=== PATIENT | male | born 1940 | race Caucasian/White ===

== ENCOUNTER 2019-11-10 11:05 | Inpatient (IN) | payer MEDICARE, SELFPAY ==
[2019-11-10] VITALS (14 sets, daily range): BP systolic 136–151; BP diastolic 66–81; PULSE 75–82; RESP 16–26; TEMP 36.2–36.8; O2SAT 92–98; BMI 28.3
--- NOTE | ~2019-11-10 | CT_ITS ---
EXAMINATION:CT chest w con DATE: 11/14/2019 10:39 INDICATION: Abnormal chest radiograph. Hemoptysis. TECHNIQUE: Computed tomography (CT) of the chest was performed with 75 mL Omnipaque 350 intravenous c ontrast. Automated exposure control and iterative reconstruction technique were employed. The dose-le ngth product (DLP) was 312.04 mGy-cm. COMPARISON: Chest CT 09/13/2007, chest single view 11/13/2019 FINDINGS: There is severe emphysema. There is bronchiectasis in the inferior lungs. There are mild gr oundglass and airspace opacities in left lower lobe with volume loss, likely atelectasis and chronic lung disease. There are peripheral airspace opacities in left upper lobe with volume loss, likely ate lectasis and chronic lung disease. Calcified left lung nodules and calcified left hilar and mediastin al lymph nodes are consistent with old granulomatous disease. There is a 5 mm nodule in right middle lobe, new from 09/13/2007. No pleural effusion. Cardiomegaly is noted. There are coronary artery calc ifications. There is no pulmonary embolus. There is mild thoracic spondylosis. IMPRESSION: 1. Peripheral airspace and groundglass opacities in left lung with volume loss, likely a combination of atelectasis and chronic lung disease. These findings correlate with the chest radiograph abnormali ty. 2. Severe emphysema. Bronchiectasis in the inferior lungs. 3. 5 mm pulmonary nodule, new from 09/13/2007, probably benign. Noncontrast chest CT is recommended i n 6 months. 4. Cardiomegaly. Reviewed, dictated and finalized at location A. UCT COORDINATOR IMPRESSION: 1. Peripheral airspace and groundglass opacities in left lung with volume loss, likely a combination of atelectasis and chronic lung disease. These findings c orrelate with the chest radiograph abnormality. 2. Severe emphysema. Bronchiectasis in the inferior lungs. 3. 5 mm pulmonary nodule, new from 09/13/2007, probably benign. Noncontrast beba st CT is recommended in 6 months. 4. Cardiomegaly.
--- NOTE | ~2019-11-10 | XR_ITS ---
EXAMINATION: XR chest 1V portable DATE: 11/13/2019 10:57 INDICATION: Congestive heart failure. Chronic obstructive pulmonary disease. TECHNIQUE: A single frontal view of the chest was obtained. COMPARISON: Chest 2 views 11/10/2019, 08/12/2007, chest CT 09/13/2007 FINDINGS: There are lucencies in the lungs, consistent with emphysema. There is a 6 cm mass in left m idlung zone. There is a small left pleural effusion. There are airspace opacities at left lung base. No pneumothorax. The heart size is normal. There are prominent paracardial fat pads. There is a left chest wall pacer with leads in the right atrium and right ventricle. IMPRESSION: 1. Mass in left midlung zone suspicious for primary bronchogenic carcinoma. Chest CT is recommended. I called this result to Dr. Dwyer on 11/13/19 at 11:15 AM. 2. Airspace opacities at left lung base, consistent with atelectasis versus pneumonia. 3. Small left pleural effusion. 4. Severe emphysema. Reviewed, dictated and finalized at location A. RLOCKER IMPRESSION: 1. Mass in left midlung zone suspicious for primary bronchogenic carcinoma. [place] st CT is recommended. I called this result to Dr. Dwyer on 11/13/19 at 11:15 AM. 2. Airspace opacities at left lung base, consistent with atelectasis versus pne umonia. 3. Small left pleural effusion. 4. Severe emphysema.
--- NOTE | ~2019-11-10 | XR_ITS ---
EXAMINATION: XR chest 2V EXAM DATE: 11/10/2019 12:57 INDICATION: Shortness of breath on exertion, symptoms for months. COPD. TECHNIQUE: Frontal and lateral projections of the chest obtained and reviewed. Comparison is made to prior examination from 08/12/2007. FINDINGS: There is increased bilateral reticulation, multifocal bilateral airspace disease with more confluent opacity in the left upper lobe. Could be edema and/or pneumonia assuming this is acute. Un derlying chronic interstitial lung disease also possible. Left upper lobe malignancy not excludable, and follow-up chest x-ray should be obtained in 2-4 weeks as indicated clinically. There is cardiomegaly and pulmonary vascular congestion. Mild hyperinflation. There is a dual lead pa cemaker/AICD seen with leads projecting over the expected locations of the right atrial appendage and right ventricle. There is aortic arterial sclerosis. There are mild bony degenerative changes. There is no pneumothorax suspected. The airspace disease described is new compared to 2006. IMPRESSION: Abnormal reticulation and airspace disease more confluent in left upper lobe; clinical co rrelation for edema versus pneumonia. Follow-up chest x-ray indicated to exclude any underlying cance r or underlying pulmonary fibrosis. Reviewed, dictated and finalized at location B. DREN'S BOOK AUTHOR IMPRESSION: Abnormal reticulation and airspace disease more confluent in left u pper lobe; clinical correlation for edema versus pneumonia. Follow-up chest x-r ay indicated to exclude any underlying cancer or underlying pulmonary fibrosis.
--- NOTE | 2019-11-10 11:23 | PC.NURSE ---
PT TAKEN TO ROOM 5, ROB SIERRA INFORMED OF PT STATUS, RA SATURATION AT TIME OF ROOMING 72%, PT PLACED ON 2L NC. ROB SIERRA AT BEDSIDE.
--- NOTE | 2019-11-10 12:05 | ED.SOB ---
HPI - SOB/Dyspnea General Chief Complaint: Shortness of Breath/Dyspnea Stated Complaint: SpO2 74% Time Seen by Provider: 11/10/19 11:55 Source: patient, family () and RN notes reviewed Mode of arrival: ambulatory Limitations: no limitations History of Present Illness HPI Narrative: A 79 y/o male, with a hx of COPD, presents to the ED from Dr. Magana's office with worsening exertional SOB for the past 2 months. He states that while he was at Dr. Magana's office that his O2 sat was 74%, so they suggested he come here to be evaluated. He reports that after being placed on 4 L of O2 that he feels better. He also reports that resting alleviates his SOB and that exertion exacerbates his SOB. He denies any fevers, chills, sweats, CP, N/V/D, ABD pain, and any other medical complaints at this time. MD elicited complaint: shortness of breath Pertinent past history: COPD Onset (ago): month(s) (2) Context: occurred during exertion Timing: progressively worsening Exacerbating factors: exertion Relieving factors: oxygen and rest Known history of: COPD Associated symptoms: denies other symptoms Treatment prior to arrival: oxygen Related Data Home Medications Medication Instructions Recorded Confirmed albuterol sulfate 90 mcg/actuation 1 puff INHALATION Q4H PRN 11/07/19 aerosol inhaler apixaban 5 mg tablet 5 mg PO BID 11/07/19 budesonide-formoterol HFA 160 2 puff INHALATION Q12H 11/07/19 mcg-4.5 mcg/actuation aerosol inhaler bupropion HCl 150 mg tablet,12 hr 150 mg PO QAM 11/07/19 sustained-release celecoxib 200 mg capsule 200 mg PO DAILY 11/07/19 coenzyme Q10 200 mg capsule 200 mg PO DAILY 11/07/19 cyclobenzaprine 10 mg tablet 10 mg PO TID 11/07/19 esomeprazole magnesium 40 mg 40 mg PO DAILY 11/07/19 capsule,delayed release hydrochlorothiazide 12.5 mg tablet 12.5 mg PO DAILY 11/07/19 lisinopril 40 mg tablet 40 mg PO DAILY 11/07/19 metoprolol tartrate 50 mg tablet 50 mg PO BID tablet 11/07/19 pediatric multivitamin 1 tablet PO DAILY 11/07/19 tadalafil 5 mg tablet 5 mg PO DAILY 11/07/19 Allergies Allergy/AdvReac Type Severity Reaction Status Date / Time amiodarone Allergy Unknown Unknown Verified 11/10/19 11:32 cefuroxime Allergy Unknown Unknown Verified 11/10/19 11:32 fluticasone Allergy Unknown Blurry Verified 11/10/19 11:32 Vision rosuvastatin Allergy Unknown Muscle Pain Verified 11/10/19 11:32 salmeterol Allergy Unknown Unknown Verified 11/10/19 11:32 NA Allergy Unknown Uncoded 11/10/19 11:32 Review of Systems Review of Systems: All systems reviewed & are unremarkable except as noted in HPI and below Constitutional: Constitutional: Denies chills, Denies fatigue, Denies fever(s), Denies headache(s) and Denies night sweats Eyes: Eyes: Denies change in vision, Denies loss of vision and Denies other visual disturbances ENT: Denies headache(s), Denies hoarseness, Denies epistaxis, Denies nasal congestion and Denies sore throat Cardiovascular: Cardiovascular: Denies chest pain, Denies leg edema, Denies palpitations and Denies dyspnea Respiratory: Respiratory: Reports dyspnea (with exertion) Gastrointestinal: Gastrointestinal: Denies abdominal pain, Denies diarrhea, Denies nausea and Denies vomiting Genitourinary: Genitourinary: Denies hematuria, Denies dysuria and Denies urinary frequency Musculoskeletal: Musculoskeletal: Denies abnormal gait, Denies deformity, Denies joint swelling, Denies muscle weakness and Denies numbness Integumentary/Breasts: Skin/Breast: Denies rash, Denies unusual bruising and Denies wounds Neurologic: Denies abnormal gait, Denies headache(s), Denies focal weakness, Denies loss of vision and Denies numbness Psychiatric: Psychiatric: Reports no additional psychiatric complaints Endocrine: Endocrine: Denies fatigue and Denies palpitations Hematologic/Lymphatic: Hematologic/Lymphatic: Denies easy bleeding and Denies easy bruising Allergic/Immunologic: Allergic/Immun
--- NOTE | 2019-11-10 12:41 | ECG_ITS ---
Measurements Intervals [place] Rate: 75 P: NV: 0 QRS: 109 QRSD: 184 T: -44 QT: 453 QTc: 507 Interpretive Statements ELECTRONIC VENTRICULAR PACEMAKER BASELINE ARTIFACT- I, II, III, AVR, AVL, AVF, V1-V2 NO FURTHER INTERPRETATION IS POSSIBLE ATYPICAL ECG Electronically Signed On 11-10-2019 13:19:23 LOOP TACKER by Alexis Gutiérrez D.O.
[2019-11-10 12:52] LABS: Basophils Absolute Auto 0.1 K/mm3 (0.0-0.1); Basophils Percent Auto 0.6 % (0.2-1.2); Eosinophils Absolute Auto 0.5 K/mm3 (0-0.3); Eosinophils Percent Auto 4.6 % (0-4.4); Hemoglobin 16.3 g/dL (14.0-18.0); Immature Granulocyte Percent A 0.9 % (0-0.5); Lymphocytes Absolute Auto 0.89 K/mm3 (0.9-3.2); Lymphocytes Percent Auto 8.3 % (18.3-44.2); Mean Corpuscular HGB Conc 32.6 g/dl (32-36); Mean Corpuscular Hemoglobin 30.9 pg (26-34); Mean Corpuscular Volume 94.9 fl (80-100); Mean Platelet Volume 9.4 fl (7.4-10.4); Monocytes Absolute Auto 1.4 K/mm3 (0.1-0.6); Neutrophils Absolute Auto 7.8 K/mm3 (1.3-6.7); Neutrophils Percent Auto 72.6 % (45.5-73.1); Platelet Count Result 292 k/mm3 (150-375); Red Blood Count 5.27 M/mm3 (4.6-6.20); Red Cell Distribution Width 15.5 % (11.5-14.5); White Blood Count 10.8 K/mm3 (4.5-10.0)
[2019-11-10 13:03] LABS: Blood Urea Nitrogen 29 mg/dL (9-20); Calcium 9.2 mg/dL (8.4-10.2); Carbon Dioxide 32 mmol/L (22-30); Chloride 93 mmol/L (98-107); Estimated CRCL calculation 55 ml/min; Estimated Glomerular Filt Rate > 60; Glucose 111 mg/dL (75-110); Potassium 3.9 mmol/L (3.4-5.0); Sodium 137 mmol/L (137-145)
[2019-11-10] MEDS: FUROSEMIDE INJ 40 MG/4 ML VIAL IV PUSH ×2 (13:44→20:07)
[2019-11-10] MEDS: ALBUTEROL SULFATE NEB 2.5 MG/0.5 ML INH 5 MG INHALATION ×2 (13:59→20:57)
[2019-11-10] MEDS: IPRATROPIUM BR 0.02% INH SOLN 0.5 MG/2.5 ML VIAL INHALATION ×2 (13:59→20:57)
[2019-11-10 14:57] LABS: NT Pro B Type Natriuretic Pept 11900 PG/ML (5-100); Troponin I 0.138 ng/mL (0.000-0.034)
[2019-11-10 16:39] LABS: Troponin I 0.109 ng/mL (0.000-0.034)
--- NOTE | 2019-11-10 17:34 | PC.NURSE ---
Pt. took 5mg eliquis from home, approved by EDP. Rest of medications will be taken care of in the IMU.
--- NOTE | 2019-11-10 18:01 | PC.NURSE ---
Faxed SBAR to IMU at 1709, Per IMU they never received it. Tubed the SBAR to IMU.
--- NOTE | 2019-11-10 18:57 | ADMIMU ---
This patient, Ziyad Fregoso, was admitted to IMU status, and placed in IMU Room 209-01 AT 1835. Patient/family oriented to hospital policies and general routines including ID bracelet, bed and alarms, visiting hours, pain management, procedures, bathroom and other care routines, personal items, smoking policy, room service/diet, and visiting hours. Valuables list has been completed. Information on how to activate the Rapid Response Team has been discussed. Patient/Family are encouraged to report perceived risks to care and to ask questions if they do not understand what they are told or what they should do.
[2019-11-10 19:28] LABS: Troponin I 0.092 ng/mL (0.000-0.034)
[2019-11-11] VITALS (25 sets, daily range): BP systolic 134–165; BP diastolic 24–99; PULSE 24–122; RESP 18–21; TEMP 36.4–36.8; O2SAT 90–98
[2019-11-11] MEDS: ALBUTEROL SULFATE NEB 2.5 MG/0.5 ML INH 5 MG INHALATION ×4 (03:18→20:58)
[2019-11-11] MEDS: IPRATROPIUM BR 0.02% INH SOLN 0.5 MG/2.5 ML VIAL INHALATION ×4 (03:19→20:58)
[2019-11-11] MEDS: POTASSIUM CHLORIDE 20 MEQ TABLET.ER PO (08:35)
[2019-11-11] MEDS: ASPIRIN 81 MG CHEWABLE TABLET PO (08:35)
[2019-11-11] MEDS: FUROSEMIDE INJ 40 MG/4 ML VIAL IV PUSH ×2 (08:36→20:28)
--- NOTE | 2019-11-11 10:36 | PM.IMHP ---
H&P: HPI History of Present Illness Chief complaint: chf/copd/troponin leak Narrative: Date and Time of Service of History & Physical: November 11, 2019 at 10:15 a.m.. Date and Time of Admission Order: November 10, 2019 at 4:51 p.m.. Chief Complaint: Worsening shortness of breath x2 months. History of Present Illness: Ziyad Fregoso is a 79 year old male with known systolic congestive heart failure, hypertension, chronic atrial fibrillation, status post pacemaker present to the emergency room after being seen for regular visit with his primary physician, Dr. Magana. Patient has been having increasing shortness of breath with walking over the past 2 months. He denies fever or chills. He reports a cough at night. He has noticed fluid legs. No headache or dizziness. While being seen yesterday, he was noted to have oxygen saturation at 74% with recommendation to come to the emergency room. Findings there were concerning for exacerbation congestive heart failure. Pulmonology and cardiology recalled from the emergency room. Decision was made to admit patient for further evaluation and treatment. He does report he was treated for lymphoma in his abdomen last year and has been in remission. No chest pain or pressure. No abdominal pain. No nausea, vomiting or diarrhea. Review of Systems Review of Systems: All systems reviewed & are unremarkable except as noted in HPI and below Constitutional: Constitutional: Denies chills and Denies fever(s) Eyes: Eyes: Denies blurry vision and Denies diplopia ENT: Denies epistaxis, Denies nasal congestion, Denies nasal discharge and Denies sore throat Cardiovascular: Cardiovascular: Denies chest pain, Reports leg edema, Denies lightheadedness and Denies palpitations Respiratory: Respiratory: Reports cough (at night) and Reports dyspnea on exertion Gastrointestinal: Gastrointestinal: Denies abdominal pain, Denies constipation, Denies diarrhea, Denies nausea and Denies vomiting Genitourinary: Genitourinary: Denies hematuria, Denies dysuria and Denies urinary frequency Musculoskeletal: Musculoskeletal: Reports no additional musculoskeletal complaints Integumentary/Breasts: Skin/Breast: Denies rash Neurologic: Denies Abnormal speech present, Denies abnormal gait, Denies confusion, Denies headache(s) and Denies numbness Psychiatric: Psychiatric: Denies anxiety and Denies depression Endocrine: Endocrine: Reports no additional endocrine complaints Hematologic/Lymphatic: Hematologic/Lymphatic: Reports no additional hematologic/lymphatic complaints Allergic/Immunologic: Allergic/Immunologic: Reports no additional allergic/immunologic complaints [facility] Past Medical History Medical History (Updated 11/11/19 @ 11:24 by Norma Dwyer MD) Atrial fibrillation Congestive heart failure COPD (chronic obstructive pulmonary disease) Hypertension MALT lymphoma Surgical History Surgical History History of laparoscopic cholecystectomy History of permanent cardiac pacemaker placement Family History Family History Sibling Family history of lung cancer, Onset Age: 70 Patient's brother is Congestive heart failure sister Mother Congestive heart failure Father No problems noted. Social History Social History Social History: The patient is . He does live with his . He has 2 sons and 1 daughter. Patient is a DNR. 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 He is a previous smoker having smoked up to 3 packs per day but quit 25-30 years ago. He does drink occasional beer. Smoking packs per day: 3 Smoking cigarettes per day: 60.0 Years smoked: 40 Smoking pack-years: 120.00 Smoking status: Former smoker Tobacco type: cigarettes Second hand tobacco
--- NOTE | 2019-11-11 13:28 | WPDCN ---
Assessment and Plan Assessment and plan (1) Acute on chronic systolic heart failure: Code(s): I50.23 - Acute on chronic systolic (congestive) heart failure Status: Acute Assessment and Plan: Patient has progressive WOOTEN and was admitted with acute on chronic CHF despite his Lasix is being increased in July. Looks like he has had some worsening of left ventricular dysfunction, now with severe global hypokinesis. He is also ventricularly pacing quite a lot, 88-98% of the time which may be contributing to the deterioration of his left ventricular function. He has not had an ischemia evaluation for a long time. 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 Jeffries. (2) Cardiomyopathy: Code(s): I42.9 - Cardiomyopathy, unspecified Status: Acute Assessment and Plan: LV systolic dysfunction has progressed, but no EF documented on recent Ecvho (3) Atrial fibrillation: Qualifiers: Atrial fibrillation type: longstanding persistent Qualified Code(s): I48.11 - Longstanding persistent atrial fibrillation Code(s): I48.91 - Unspecified atrial fibrillation Status: Acute Assessment and Plan: Permanent atrial fibrillation, rate controlled (4) Pacemaker: Code(s): Z95.0 - Presence of cardiac pacemaker Status: Acute Assessment and Plan: [employer] pacemaker, dual chamber but programmed VVIR rate 75, ventricularly pacing most of the time (5) Chronic anticoagulation: Code(s): Z79.01 - nursing home (current) use of anticoagulants Status: Acute Assessment and Plan: Tolerating Eliquis HPI Data of Consult Date/Time: 11/11/19 13:28 Requesting Physician: Chet Johnson MD Primary Care Provider: Rogerio Magana, Consult Narrative Narrative: Date of SErvice: 11/11/2019 Ziyad Fregoso is a 79 year old male whom we were asked to see by Dr. Dwyer for our opinion and advice regarding his CHF and cardiomyoopathy. His usual PMD is Dr. Magana and he's been followed in the past by barge captain Dr. Vasquez at [facility], who just retired. The patient has a history of persistent atrial fibrillation, a [employer] VVI pacemaker, and cardiomyopathy. The patient has not felt well for the last 2 months with progressive WOOTEN. He was seen by Dr. Majano's nurse practitioner Stacie Duenas in July 2019 complaining of progressive WOOTEN and she again recommended a Lexiscan but apparently that was declined. His Lasix was increased from 20-40 mg daily. He has been on 2 rounds of Keflex since then for his mild cough. Since Dr. Fuentes retired the patient was planning on following up with Dr. Jeffries in our office but his shortness of breath got worse and worse such that mild activity caused dyspnea. He saw Dr. Keisha jackson where his O2 sat was 74% and sent to the emergency room, diagnosed with exacerbation of CHF and admitted with Lasix 40 mg IV push b.i.d.. He is feeling a little bit better. He reports no edema, PND, weight gain, orthopnea. 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 He has a moderate fluid intake of about 2 L per day, though not very tight with his low salt diet, and avoids nonsteroidals. He has been compliant with his medications. No chest pain or pressure, or palpitations. Cardiac testing: Echo 2017 showed EF of 35-40%, moderate global dysfunction, with mild MR and [id number] AI. Echo 07/2019 at [place]
[2019-11-11] MEDS: PANTOPRAZOLE 40 MG TABLET PO (13:30)
[2019-11-11] MEDS: CYANOCOBALAMIN 1,000 MCG TABLET 1000 MCG PO (13:30)
[2019-11-11] MEDS: METOPROLOL TARTRATE 50 MG TAB PO ×2 (13:30→20:28)
[2019-11-11] MEDS: APIXABAN 5 MG TABLET PO ×2 (13:30→20:28)
[2019-11-11] MEDS: lisinopriL 20 MG TABLET 40 MG PO (13:30)
[2019-11-12] VITALS (27 sets, daily range): BP systolic 108–136; BP diastolic 59–75; PULSE 75–93; RESP 16–22; TEMP 36.1–36.7; O2SAT 86–97; BMI 27.5
[2019-11-12] MEDS: ALBUTEROL SULFATE NEB 2.5 MG/0.5 ML INH 5 MG INHALATION ×4 (02:25→20:17)
[2019-11-12] MEDS: IPRATROPIUM BR 0.02% INH SOLN 0.5 MG/2.5 ML VIAL INHALATION ×4 (02:26→20:17)
[2019-11-12 04:54] LABS: Hematocrit 46.1 % (42.0-52.0); Hemoglobin 15.3 g/dL (14.0-18.0); Mean Corpuscular HGB Conc 33.2 g/dl (32-36); Mean Corpuscular Hemoglobin 30.7 pg (26-34); Mean Corpuscular Volume 92.6 fl (80-100); Mean Platelet Volume 8.5 fl (7.4-10.4); Platelet Count Result 281 k/mm3 (150-375); Red Blood Count 4.98 M/mm3 (4.6-6.20); White Blood Count 11.6 K/mm3 (4.5-10.0)
[2019-11-12 05:11] LABS: Blood Urea Nitrogen 35 mg/dL (9-20); Calcium 8.9 mg/dL (8.4-10.2); Carbon Dioxide 31 mmol/L (22-30); Chloride 95 mmol/L (98-107); Estimated CRCL calculation 55 ml/min; Estimated Glomerular Filt Rate > 60; Glucose 109 mg/dL (75-110); Magnesium 1.6 mg/dL (1.6-2.3); Potassium 3.6 mmol/L (3.4-5.0); Sodium 134 mmol/L (137-145)
[2019-11-12] MEDS: POTASSIUM CHLORIDE 20 MEQ TABLET.ER PO (09:36)
[2019-11-12] MEDS: PANTOPRAZOLE 40 MG TABLET PO (09:36)
[2019-11-12] MEDS: FUROSEMIDE INJ 40 MG/4 ML VIAL IV PUSH ×2 (09:37→20:43)
[2019-11-12] MEDS: METOPROLOL TARTRATE 50 MG TAB PO ×2 (09:37→20:43)
[2019-11-12] MEDS: ASPIRIN 81 MG CHEWABLE TABLET PO (09:37)
[2019-11-12] MEDS: buPROPion HCL XL (24 HR) 150 MG TABCR PO (09:38)
[2019-11-12] MEDS: APIXABAN 5 MG TABLET PO ×2 (09:38→20:43)
[2019-11-12] MEDS: CYANOCOBALAMIN 1,000 MCG TABLET 1000 MCG PO (09:38)
--- NOTE | 2019-11-12 13:58 | PCNSR ---
On 11/12/19, the student, Shira King, provided care and completed [facility] documentation on this patient. I have reviewed the student's documentation and agree with the findings.
--- NOTE | 2019-11-12 14:21 | PM.IMPN ---
Progress Note: A&P Assessment and Plan (1) Acute respiratory failure: Qualifiers: Respiratory failure complication: hypoxia Qualified Code(s): J96.01 - Acute respiratory failure with hypoxia Code(s): J96.00 - Acute respiratory failure, unspecified whether with hypoxia or hypercapnia Status: Acute Assessment and Plan: Most likely result of CHF exacerbation. Patient normally does not use oxygen at home. Has been able to wean down to 2 L of oxygen. Patient is aware may need home oxygen evaluation of unable to wean off oxygen by the time discharge. Continue nebulizer treatments. Will continue treatment of CHF as noted below. Continue to monitor. (2) Congestive heart failure: Qualifiers: Heart failure chronicity: acute on chronic Heart failure type: systolic Qualified Code(s): I50.23 - Acute on chronic systolic (congestive) heart failure Code(s): I50.9 - Heart failure, unspecified Status: Acute Assessment and Plan: Cardiology consulted and appreciate input. BNP elevated on admission. Last echocardiogram in July 2019 with EF 35-40%. Diuresing with IV Lasix. Lisinopril discontinued with plan to transition to Entresto starting on the morning of 11/13/2019. Remains on home metoprolol. Will monitor. (3) Cardiomyopathy: Qualifiers: Cardiomyopathy type: unspecified Qualified Code(s): I42.9 - Cardiomyopathy, unspecified Code(s): I42.9 - Cardiomyopathy, unspecified Status: Acute Assessment and Plan: Continue diuresis and metoprolol as above. Starting Entresto tomorrow. (4) Elevated troponin: Code(s): R79.89 - Other specified abnormal findings of blood chemistry Status: Acute Assessment and Plan: Troponin levels elevated but decreasing. Was likely result of CHF exacerbation. Per Cardiology, plan for outpatient Lexiscan stress test as he has not had recent ischemia evaluation. Telemetry reviewed on 11/12/2019 with paced rhythm. (5) COPD (chronic obstructive pulmonary disease): Qualifiers: COPD type: unspecified COPD Qualified Code(s): J44.9 - Chronic obstructive pulmonary disease, unspecified Code(s): J44.9 - Chronic obstructive pulmonary disease, unspecified Status: Acute Assessment and Plan: Chest x-ray with reticulation and airspace disease. Clinically, patient does not have pneumonia with no regular cough, no fever no elevated WBC. Also, does not appear to have exacerbation. Will continue Symbicort and nebulizer treatments. Has weaned down to 2 L of oxygen. Did receive IV Levaquin and IV dexamethasone ER but will not continue at this time. Will, however, add Mucinex to see if this will help with cough. Will monitor. (6) Hypertension: Qualifiers: Hypertension type: essential hypertension Qualified Code(s): I10 - Essential (primary) hypertension Code(s): I10 - Essential (primary) hypertension Status: Acute Assessment and Plan: Blood pressure reviewed on 11/12/2019. Blood pressure now acceptable. Patient remains on home metoprolol. Lisinopril held as transitioning to Entresto tomorrow. Will continue to monitor. Adjust treatment as needed. (7) Atrial fibrillation: Qualifiers: Atrial fibrillation type: longstanding persistent Qualified Code(s): I48.11 - Longstanding persistent atrial fibrillation Code(s): I48.91 - Unspecified atrial fibrillation Status: Acute Assessment and Plan: Telemetry as noted above. Heart rate remains stable. Continue metoprolol. Will also continue apixaban for anticoagulation. Will monitor. (8) Pacemaker: Code(s): Z95.0 - Presence of cardiac pacemaker Status: Acute Assessment and Plan: S/P placement. Cardiology folowing as noted above. May need to consider upgrade as outpatient. (9) DVT prophylaxis: Code(s): Z29.9 - Encounter for prophylactic measures,
--- NOTE | 2019-11-12 14:29 | PM.PNCARD ---
Progress Note: A&P Assessment and Plan (1) Acute on chronic systolic heart failure: Code(s): I50.23 - Acute on chronic systolic (congestive) heart failure Status: Acute Assessment and Plan: Progressive WOOTEN and was admitted with acute on chronic CHF despite his Lasix is being increased in July. Some worsening of left ventricular dysfunction, now with severe global hypokinesis. He is also ventricularly pacing quite a lot, 88-98% of the time which may be contributing to the deterioration of his left ventricular function. He has not had an ischemia evaluation for a long time. -Diuresing well. Continues to have shortness of breath with exertional activities. Continues to have cough. Still has crackles in his bases and some expiratory wheezes. -Continue IV diuretics for today. Will reassess the need for continuation tomorrow. Potassium and magnesium were supplemented. BMP and magnesium in the morning. -Lisinopril washout. Entresto will start tomorrow. Case management will david. -Echo to determine ejection fraction -Consider pacemaker upgrade to a biventricular pacemaker or a Bi V ICD as an outpatient, after further discussion with his new drawer fitter Dr. Jeffries. (2) Cardiomyopathy: Code(s): I42.9 - Cardiomyopathy, unspecified Status: Acute Assessment and Plan: LV systolic dysfunction has progressed, but no EF documented on recent Echo Repeat echo to evaluate systolic function. (3) Atrial fibrillation: Qualifiers: Atrial fibrillation type: longstanding persistent Qualified Code(s): I48.11 - Longstanding persistent atrial fibrillation Code(s): I48.91 - Unspecified atrial fibrillation Status: Acute Assessment and Plan: Permanent atrial fibrillation, rate controlled (4) Pacemaker: Code(s): Z95.0 - Presence of cardiac pacemaker Status: Acute Assessment and Plan: [employer] pacemaker, dual chamber but programmed VVIR rate 75, ventricularly pacing most of the time (5) Chronic anticoagulation: Code(s): Z79.01 - FDC (current) use of anticoagulants Status: Acute Assessment and Plan: Tolerating Eliquis Additional Plan Plan discussed with Dr Jacinto 1440 11/12/2019 Time Spent With Patient Time with patient: less than 15 minutes Subjective Date/time seen: 11/12/19 14:29 Interval history: Follow-up for: Acute on chronic systolic heart failure, cardiomyopathy, atrial fibrillation, pacemaker, chronic anticoagulation Date of service: 11/12/2019 Subjective: Denied chest discomfort. Short of breath with exertional activities. Up in bathroom trying to brush teeth and cleaned up without oxygen and became very fatigued. No lightheadedness. Continues to be bothered by his cough. Review of Systems Constitutional: Constitutional: Reports fatigue, Denies fever(s), Denies frequent falls and Reports lethargy Eyes: Eyes: Denies blurry vision ENT: Reports Normal hearing present Comments: No longer has itching scalp. Cardiovascular: Cardiovascular: Denies chest pain, Denies chest pain with activity, Denies syncope, Denies rapid heart rate, Denies pedal edema, Denies edema, Denies leg edema, Denies lightheadedness, Reports dyspnea, Reports dyspnea on exertion and Denies orthopnea Respiratory: Respiratory: Reports chest congestion, Reports cough (Nonproductive), Reports dyspnea and Reports dyspnea on exertion Gastrointestinal: Gastrointestinal: Denies abdominal pain and Denies hematochezia Genitourinary: Genitourinary: Denies hematuria Musculoskeletal: Musculoskeletal: Denies back pain and Denies arthralgias Comments: No longer feels that he has cold feet Integumentary/Breasts: Skin/Breast: Denies rash and Denies wounds Neurologic: R
--- NOTE | 2019-11-12 14:50 | ECHO_ITS ---
Patient Info Name: Ziyad Fregoso Age: 79 years : 1940 Gender: Male Ht: 72 in Wt: 202 lbs BSA: 2.17 m2 HR: 76 bpm BP: 136 / 75 mmHg Heart Rhythm: Atrial Fibrillation Technical Quality: Good Exam Date: 11/12/2019 3:02 PM Exam Location: [facility] Patient Status: Inpatient Admit Date: 11/10/2019 Staff Ordering Physician: Bella Terry APRN Manager Installation: Angel Jefferson RDCS, RT Attending Provider: Williams Johnson MD Referring Physician: Harrison MARTINEZ; Exam Type: CA echo doppler color flow Study Info Indications - ACUTE /CHRONIC SYSYTOLIC HEART FAILURE Complete two-dimensional, color flow and Doppler transthoracic echocardiogram is performed. Summary 1. Normal left ventricular size with moderate concentric left ventricular hypertrophy. Flattening of the septum is noted, consistent with right ventricular pressure and volume overload. Severe global hypokinesis is present. The calculated ejection fraction is 42% but visually it appears in the 30-35% range. No focal wall motion abnormalities. Diastolic dynfunction is present. The global longitudinal strain is -9% severely reduced, consistent with systolic dysfunction. 2. Right ventricular chamber dimension is mildly enlarged with mild hypokinesis. Pacemaker noted. 3. Left atrial chamber dimension is severely enlarged. 4. Right atrial chamber dimension is moderately enlarged. 5. There is moderate aortic valve regurgitation. 6. There is moderate to moderately severe mitral valve regurgitation. PISA was 0.;4 cm. 7. There is moderate tricuspid valve regurgitation. 8. There is mild pulmonic regurgitation. 9. Moderate pulmonary hypertension, estimated pulmonary arterial systolic pressure is 50 mmHg. 10. ATrial fibrillation. Left Ventricle Left ventricular chamber dimension is normal. Left ventricular systolic function is severely reduced, estimated at 30-35%. There is moderately increased left ventricular wall thickness. Left ventricular septal wall motion is normal. The left ventricular diastolic function is abnormal. Global longitudinal strain is moderately elevated at -9 %. Normal left ventricular size with moderate concentric left ventricular hypertrophy. Flattening of the septum is noted, consistent with right ventricular pressure and volume overload. Severe global hypokinesis is present. The calculated ejection fraction is 42% but visually it appears in the 30-35% range. No focal wall motion abnormalities. Diastolic dynfunction is present. The global longitudinal strain is -9% severely reduced, consistent with systolic dysfunction. Right Ventricle Right ventricular chamber dimension is mildly enlarged with mild hypokinesis. Pacemaker noted. Right ventricular systolic function is reduced. Linear artifact in right ventricle suggestive of catheter(s), pacemaker lead(s), or ICD lead(s). Left Atria Left atrial chamber dimension is severely enlarged. Right Atria Right atrial chamber dimension is moderately enlarged. Aortic Valve The aortic valve is trileaflet. There is moderate aortic valve sclerosis. There is no aortic valve stenosis. There is moderate aortic valve regurgitation. Pulmonic Valve The pulmonic valve is normal. There is no pulmonic valve stenosis. There is mild pulmonic regurgitation. Mitral Valve The mitral valve has normal leaflets. There is no mitral valve stenosis. There is moderate to moderately severe mitral valve regurgitation. PISA was 0.;4 cm. Tricuspid Valve The tricuspid v
[2019-11-12] MEDS: POTASSIUM CHLORIDE 20 MEQ TABLET 40 MEQ PO (19:03)
[2019-11-12] MEDS: GUAIFENESIN/DEXTROMETHORPHAN 10 ML UDC 5 ML PO (19:04)
[2019-11-12] MEDS: MAGNESIUM SULF 2 GM/WATER 50ML 2 GM/50 ML BAG IVPB (19:04)
[2019-11-13] VITALS (26 sets, daily range): BP systolic 115–127; BP diastolic 58–69; PULSE 20–98; RESP 18–79; TEMP 36.2–36.6; O2SAT 86–99
[2019-11-13] MEDS: IPRATROPIUM BR 0.02% INH SOLN 0.5 MG/2.5 ML VIAL INHALATION ×4 (01:44→20:57)
[2019-11-13] MEDS: ALBUTEROL SULFATE NEB 2.5 MG/0.5 ML INH 5 MG INHALATION ×4 (01:44→20:57)
[2019-11-13 05:24] LABS: Blood Urea Nitrogen 40 mg/dL (9-20); Calcium 8.9 mg/dL (8.4-10.2); Carbon Dioxide 34 mmol/L (22-30); Chloride 94 mmol/L (98-107); Estimated CRCL calculation 44 ml/min; Estimated Glomerular Filt Rate 49; Glucose 93 mg/dL (75-110); Potassium 4.1 mmol/L (3.4-5.0); Sodium 135 mmol/L (137-145)
[2019-11-13] MEDS: FUROSEMIDE INJ 40 MG/4 ML VIAL IV PUSH (08:37)
[2019-11-13] MEDS: ASPIRIN 81 MG CHEWABLE TABLET PO (08:37)
[2019-11-13] MEDS: buPROPion HCL XL (24 HR) 150 MG TABCR PO (08:38)
[2019-11-13] MEDS: APIXABAN 5 MG TABLET PO ×2 (08:38→20:07)
[2019-11-13] MEDS: PANTOPRAZOLE 40 MG TABLET PO (08:38)
[2019-11-13] MEDS: SACUBITRIL/VALSARTAN 24-26 MG TABLET 1 TAB PO ×2 (08:38→20:07)
[2019-11-13] MEDS: METOPROLOL TARTRATE 50 MG TAB PO ×2 (08:38→20:07)
[2019-11-13] MEDS: CYANOCOBALAMIN 1,000 MCG TABLET 1000 MCG PO (08:38)
[2019-11-13] MEDS: POTASSIUM CHLORIDE 20 MEQ TABLET.ER PO (08:38)
--- NOTE | 2019-11-13 10:02 | PM.PNCARD ---
Progress Note: A&P Assessment and Plan (1) Acute on chronic systolic heart failure: Code(s): I50.23 - Acute on chronic systolic (congestive) heart failure Status: Acute Assessment and Plan: Progressive WOOTEN and was admitted with acute on chronic CHF despite his Lasix is being increased in July. Some worsening of left ventricular dysfunction, now with severe global hypokinesis and EF 30-35%. He is also ventricularly pacing quite a lot, 88-98% of the time which may be contributing to the deterioration of his left ventricular function. He has not had an ischemia evaluation for a long time. -Diuresing well. Less WOOTEN. Mild cough continues. still has crackles in his bases. -because BUN and creatinine are rising and there is no edema I will switch his IV Lasix to p.o.. BMP in the morning. -lisinopril changed to Entresto which was started 11/13/2019. Case management will david. -Check CXR to make sure there is no underlying mass -outpatient Lexiscan as he has not had ischemia evaluation for a long time -Consider pacemaker upgrade to a biventricular pacemaker or a Bi V ICD as an outpatient, after further discussion with his new trimmer loader Dr. Jeffries. (listed as a DNR) told me today that patient had an AV node ablation by Dr. Keller few years ago. -discharge Sunday? Sunday? Assess O2 needs. (2) Cardiomyopathy: Code(s): I42.9 - Cardiomyopathy, unspecified Status: Acute Assessment and Plan: EF 30-35% (3) Atrial fibrillation: Qualifiers: Atrial fibrillation type: longstanding persistent Qualified Code(s): I48.11 - Longstanding persistent atrial fibrillation Code(s): I48.91 - Unspecified atrial fibrillation Status: Acute Assessment and Plan: Permanent atrial fibrillation, rate controlled (4) Pacemaker: Code(s): Z95.0 - Presence of cardiac pacemaker Status: Acute Assessment and Plan: [employer] pacemaker, dual chamber but programmed VVIR rate 75, ventricularly pacing most of the time (5) Chronic anticoagulation: Code(s): Z79.01 - shelter (current) use of anticoagulants Status: Acute Assessment and Plan: Tolerating Eliquis Subjective Date/time seen: 11/13/19 10:02 Interval history: Follow-up for: Acute on chronic systolic heart failure, cardiomyopathy, atrial fibrillation, pacemaker, chronic anticoagulation Visit 11/12/2019 Subjective: Denied chest discomfort. Short of breath with exertional activities. Up in bathroom trying to brush teeth and cleaned up without oxygen and became very fatigued. No lightheadedness. Continues to be bothered by his cough. K+ and magnesium supplemented. Date of service: 11/13/2019 Patient diuresed about 2 L. BUN and creatinine are rising. Breathing is getting better, able to walk to the bathroom and back with no significant WOOTEN. Still on O2, 3 L. still has a dry cough. Review of Systems Constitutional: Constitutional: Reports difficulty sleeping, Reports fatigue and Reports lethargy ENT: Denies epistaxis Cardiovascular: Cardiovascular: Denies chest pain, Denies pedal edema, Denies leg edema and Denies palpitations Respiratory: Respiratory: Denies chest congestion, Reports cough, Denies dyspnea and Reports dyspnea on exertion Gastrointestinal: Gastrointestinal: Denies abdominal pain and Denies hematemesis Genitourinary: Genitourinary: Denies hematuria Musculoskeletal: Musculoskeletal: Denies back pain Integumentary/Breasts: Skin/Breast: Denies rash Neurologic: Denies confusion Psychiatric: Psychiatric: Denies confusion Exam Const: General: comfortable and no acute distress HENMT: Mouth: Yes moist mucous membranes Eyes: EOM: EOMs intact bilaterally Resp: Auscult
--- NOTE | 2019-11-13 12:37 | PM.IMPN ---
Progress Note: A&P Assessment and Plan (1) Acute respiratory failure: Qualifiers: Respiratory failure complication: hypoxia Qualified Code(s): J96.01 - Acute respiratory failure with hypoxia Code(s): J96.00 - Acute respiratory failure, unspecified whether with hypoxia or hypercapnia Status: Acute Assessment and Plan: Most likely result of CHF exacerbation. Patient normally does not use oxygen at home. Remains on 2-3 L of oxygen. Patient is aware may need home oxygen evaluation of unable to wean off oxygen by the time discharge. Continue nebulizer treatments. Will continue treatment of CHF as noted below. Will transfer to medical floor as stable. (2) Congestive heart failure: Qualifiers: Heart failure chronicity: acute on chronic Heart failure type: systolic Qualified Code(s): I50.23 - Acute on chronic systolic (congestive) heart failure Code(s): I50.9 - Heart failure, unspecified Status: Acute Assessment and Plan: Cardiology consulted and appreciate input. BNP elevated on admission. Last echocardiogram in July 2019 with EF 35-40%. Has been diuresing well with IV Lasix. Plan to transition to oral Lasix a.m.. Lisinopril stopped on admission patient started on Entresto this morning. Continues home metoprolol. Will continue to monitor. (3) Cardiomyopathy: Qualifiers: Cardiomyopathy type: unspecified Qualified Code(s): I42.9 - Cardiomyopathy, unspecified Code(s): I42.9 - Cardiomyopathy, unspecified Status: Acute Assessment and Plan: Continue treatment as noted above. (4) Mass of left lung: Code(s): R91.8 - Other nonspecific abnormal finding of lung field Status: Acute Assessment and Plan: Chest x-ray today with mass in left midlung zone suspicious for primary bronchogenic carcinoma. Patient is a former smoker. Advised patient and x-ray results. CT chest with contrast ordered. (5) Elevated troponin: Code(s): R79.89 - Other specified abnormal findings of blood chemistry Status: Acute Assessment and Plan: Troponin levels elevated but decreasing. Was likely result of CHF exacerbation. Per Cardiology, plan for outpatient Lexiscan stress test as he has not had recent ischemia evaluation. Telemetry reviewed on 11/13/2019 with paced rhythm and otherwise stable. (6) COPD (chronic obstructive pulmonary disease): Qualifiers: COPD type: unspecified COPD Qualified Code(s): J44.9 - Chronic obstructive pulmonary disease, unspecified Code(s): J44.9 - Chronic obstructive pulmonary disease, unspecified Status: Acute Assessment and Plan: Chest x-ray with reticulation and airspace disease. Clinically, patient does not have pneumonia with no regular cough, no fever no elevated WBC. Also, does not appear to have exacerbation. Repeat chest x-ray today concern for mass left lung with CT chest now ordered. Will continue Symbicort and nebulizer treatments. Remains on 2-3 L of oxygen. Liquid guaifenesin added yesterday as patient did not want pill form. Did receive IV Levaquin and IV dexamethasone ER but will not continue at this time. Continue to monitor. (7) Hypertension: Qualifiers: Hypertension type: essential hypertension Qualified Code(s): I10 - Essential (primary) hypertension Code(s): I10 - Essential (primary) hypertension Status: Acute Assessment and Plan: Blood pressure reviewed on 11/13/2019. Blood pressure remains stable. Will monitor on metoprolol and Entresto. (8) Atrial fibrillation: Qualifiers: Atrial fibrillation type: longstanding persistent Qualified Code(s): I48.11 - Longstanding persistent atrial fibrillation Code(s): I48.91 - Unspecified atrial fibrillation Status: Acute Assessment and Plan: Telemetry as noted above. Heart rate remains stable. Continue metoprolol. Will contin
--- NOTE | 2019-11-13 12:46 | HOMEO2EVAL ---
Home Oxygen Evaluation RC: Home Oxygen (O2) Evaluation Start: 11/13/19 10:36 Freq: ONCE Status: Active Protocol: RPE Activity Type Activity Date Activity User E-Sign Co-Sign Detail Recorded Client Recorded Date Recorded By Document 11/13/19 11:00 [email or web address] [email or web address] 11/13/19 12:46 DJO Document 11/13/19 11:05 [email or web address] [email or web address] 11/13/19 12:46 DJO Document 11/13/19 11:10 [email or web address] [email or web address] 11/13/19 12:46 DJO Document 11/13/19 11:15 [email or web address] [email or web address] 11/13/19 12:46 DJO Document 11/13/19 11:20 [email or web address] [email or web address] 11/13/19 12:46 DJO Document 11/13/19 11:30 [email or web address] [email or web address] 11/13/19 12:46 DJO 11/13/19 11/13/19 11/13/19 11:00 11:05 11:10 Home O2 Evaluation Test Phase Resting Resting Exercise Oxygen Delivery Room Air Nasal Cannula Nasal Cannula Oxygen Flow Rate (L/min) 1 2 Pulse Oximetry (90-100 %) 86 L 87 L 87 L Pulse Rate (60-100 beats/min) 80 78 98 Activity Tolerance Rating of Perceived Dyspnea (PD) Ambulation Distance (feet) Treatment Charges O2 Evaluation 11/13/19 11/13/19 11/13/19 11:15 11:20 11:30 Home O2 Evaluation Test Phase Exercise Exercise Resting Oxygen Delivery Nasal Cannula Nasal Cannula Nasal Cannula Oxygen Flow Rate (L/min) 2 3 2 Pulse Oximetry (90-100 %) 87 L 90 91 Pulse Rate (60-100 beats/min) 98 96 76 Activity Tolerance Good Rating of Perceived Dyspnea (PD) +2 Mild, Some Difficulty, Noticeable to the Observer Ambulation Distance (feet) 500 Treatment Charges
--- NOTE | 2019-11-13 23:07 | PC.NURSE ---
This patient, Ziyad Fregoso, was received from [ IMU 209] on 11/13/19 at 2245. Personal belongings list checked and signed. Patient/family oriented to unit policies and routines
--- NOTE | 2019-11-13 23:18 | ADMGEN ---
This patient, Ziyad Fregoso, was transferred to Room 343 via wheelchair. Patient/family oriented to hospital policies and general routines including ID bracelet, bed and alarms, visiting hours, pain management, procedures, bathroom and other care routines, personal items, smoking policy, room service/diet, and visiting hours. Valuables list has been completed. Report given to ROB Calles. Information on how to activate the Rapid Response Team has been discussed. Patient/Family are encouraged to report perceived risks to care and to ask questions if they do not understand what they are told or what they should do.
[2019-11-14] VITALS (10 sets, daily range): BP systolic 115; BP diastolic 41–60; PULSE 75–91; RESP 16–20; TEMP 36.2; O2SAT 85–95
[2019-11-14] MEDS: IPRATROPIUM BR 0.02% INH SOLN 0.5 MG/2.5 ML VIAL INHALATION ×2 (03:02→09:07)
[2019-11-14] MEDS: ALBUTEROL SULFATE NEB 2.5 MG/0.5 ML INH 5 MG INHALATION ×2 (03:02→09:07)
[2019-11-14 05:17] LABS: Hematocrit 46.8 % (42.0-52.0); Hemoglobin 15.4 g/dL (14.0-18.0); Mean Corpuscular HGB Conc 32.9 g/dl (32-36); Mean Corpuscular Hemoglobin 30.7 pg (26-34); Mean Corpuscular Volume 93.4 fl (80-100); Mean Platelet Volume 8.6 fl (7.4-10.4); Platelet Count Result 274 k/mm3 (150-375); Red Blood Count 5.01 M/mm3 (4.6-6.20); Red Cell Distribution Width 14.8 % (11.5-14.5); White Blood Count 10.7 K/mm3 (4.5-10.0)
[2019-11-14 05:29] LABS: Blood Urea Nitrogen 40 mg/dL (9-20); Calcium 8.6 mg/dL (8.4-10.2); Carbon Dioxide 33 mmol/L (22-30); Chloride 92 mmol/L (98-107); Estimated CRCL calculation 55 ml/min; Estimated Glomerular Filt Rate > 60; Glucose 104 mg/dL (75-110); Potassium 4.1 mmol/L (3.4-5.0); Sodium 131 mmol/L (137-145)
[2019-11-14] MEDS: POTASSIUM CHLORIDE 20 MEQ TABLET.ER PO (08:46)
[2019-11-14] MEDS: APIXABAN 5 MG TABLET PO (08:46)
[2019-11-14] MEDS: ASPIRIN 81 MG CHEWABLE TABLET PO (08:46)
[2019-11-14] MEDS: buPROPion HCL XL (24 HR) 150 MG TABCR PO (08:46)
[2019-11-14] MEDS: METOPROLOL TARTRATE 50 MG TAB PO (08:47)
[2019-11-14] MEDS: SACUBITRIL/VALSARTAN 24-26 MG TABLET 1 TAB PO (08:47)
[2019-11-14] MEDS: PANTOPRAZOLE 40 MG TABLET PO (08:47)
[2019-11-14] MEDS: CYANOCOBALAMIN 1,000 MCG TABLET 1000 MCG PO (08:47)
[2019-11-14] MEDS: FUROSEMIDE 20 MG TABLET PO (08:47)
--- NOTE | 2019-11-14 10:18 | PCRCNOTE ---
PT TO BE D/C HOME WITH HOME O2 FROM [facility]. THEY ARE BRINGING UP A TANK TODAY. ( FRI)THE QUALIFYING EVAL AND ORDER ON SAT, IF PT DOESNT D/C BY SAT. HE WILL NEED A NEW EVAL WITH SATS >87% ON ROOM AIR TO REQUALIFY HIM. HE WILL NEED A NEW ORDER WRITTEN WELL WITH A NEW DATE. THE ON-CALL PHONE # FOR [employer] IS [phone].
--- NOTE | 2019-11-14 14:14 | PM.IMPN ---
Progress Note: A&P Assessment and Plan (1) Acute respiratory failure: Qualifiers: Respiratory failure complication: hypoxia Qualified Code(s): J96.01 - Acute respiratory failure with hypoxia Code(s): J96.00 - Acute respiratory failure, unspecified whether with hypoxia or hypercapnia Status: Acute Assessment and Plan: Most likely result of CHF exacerbation but may also be related to his COPD. Patient normally does not use oxygen at home. Has been unable to wean off oxygen here. Home oxygen evaluation completed and patient does require oxygen at rest as well as with exercise. Has done well with PT/OT. Anticipate discharge today once seen by Cardiology. (2) Congestive heart failure: Qualifiers: Heart failure chronicity: acute on chronic Heart failure type: systolic Qualified Code(s): I50.23 - Acute on chronic systolic (congestive) heart failure Code(s): I50.9 - Heart failure, unspecified Status: Acute Assessment and Plan: Cardiology consulted and appreciate input. BNP elevated on admission. Last echocardiogram in July 2019 with EF 35-40%. Has diuresed well. Now on oral Lasix. Also now on Entresto along with his metoprolol. (3) Cardiomyopathy: Qualifiers: Cardiomyopathy type: unspecified Qualified Code(s): I42.9 - Cardiomyopathy, unspecified Code(s): I42.9 - Cardiomyopathy, unspecified Status: Acute Assessment and Plan: Continue treatment as noted above. (4) Pulmonary nodule: Code(s): R91.1 - Solitary pulmonary nodule Status: Acute Assessment and Plan: Chest x-ray on 11/13/2019 with mass in left midlung zone suspicious for primary bronchogenic carcinoma. Patient is a former smoker. CT chest with contrast recommended and ordered. CT chest with peripheral airspace and ground-glass opacities in the left lung with volume loss, likely combination of atelectasis and chronic lung disease correlating to finding on chest x-ray, severe emphysema, bronchiectasis and inferior lungs and 5 mm right pulmonary nodule probably benign but recommend noncontrast chest CT in 6 months. Patient advised of results. Will give disc of images so that he may take this to his medical oncologist with whom he has an appointment next month. (5) Elevated troponin: Code(s): R79.89 - Other specified abnormal findings of blood chemistry Status: Acute Assessment and Plan: Troponin levels elevated but decreasing. Was likely result of CHF exacerbation. Per Cardiology, plan for outpatient Lexiscan stress test as he has not had recent ischemia evaluation. (6) COPD (chronic obstructive pulmonary disease): Qualifiers: COPD type: unspecified COPD Qualified Code(s): J44.9 - Chronic obstructive pulmonary disease, unspecified Code(s): J44.9 - Chronic obstructive pulmonary disease, unspecified Status: Acute Assessment and Plan: Severe on CT chest done today with bronchiectasis. Continue Symbicort at home. Does qualify for home oxygen. (7) Hypertension: Qualifiers: Hypertension type: essential hypertension Qualified Code(s): I10 - Essential (primary) hypertension Code(s): I10 - Essential (primary) hypertension Status: Acute Assessment and Plan: Blood pressure reviewed on 11/14/2019. Blood pressure stable. Continue metoprolol and Entresto. (8) Atrial fibrillation: Qualifiers: Atrial fibrillation type: longstanding persistent Qualified Code(s): I48.11 - Longstanding persistent atrial fibrillation Code(s): I48.91 - Unspecified atrial fibrillation Status: Acute Assessment and Plan: Heart rate remains stable. Continue metoprolol. Will continue apixaban for anticoagulation. (9) Pacemaker: Code(s): Z95.0 - Presence of cardiac pacemaker Status: Acute Assessment and Plan: S/P placement. Cardiology folowing as not
--- NOTE | 2019-11-14 15:05 | PM.PNCARD ---
Progress Note: A&P Assessment and Plan (1) Acute on chronic systolic heart failure: Code(s): I50.23 - Acute on chronic systolic (congestive) heart failure Status: Acute Assessment and Plan: Progressive WOOTEN and was admitted with acute on chronic CHF despite his Lasix is being increased in July. Some worsening of left ventricular dysfunction, now with severe global hypokinesis and EF 30-35%. He is also ventricularly pacing quite a lot, 88-98% of the time which may be contributing to the deterioration of his left ventricular function. He has not had an ischemia evaluation for a long time. -continues to diurese well. Still short of breath with exertional activities but improved. -creatinine back to baseline. Will discharge on 40 mg of furosemide daily. -tolerating Entresto. 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 Jeffries. (listed as a DNR) told me today that patient had an AV node ablation by Dr. Keller few years ago. -will go home with oxygen. (2) Cardiomyopathy: Qualifiers: Cardiomyopathy type: unspecified Qualified Code(s): I42.9 - Cardiomyopathy, unspecified Code(s): I42.9 - Cardiomyopathy, unspecified Status: Acute Assessment and Plan: EF 30-35% (3) Atrial fibrillation: Qualifiers: Atrial fibrillation type: longstanding persistent Qualified Code(s): I48.11 - Longstanding persistent atrial fibrillation Code(s): I48.91 - Unspecified atrial fibrillation Status: Acute Assessment and Plan: Permanent atrial fibrillation, rate controlled (4) Pacemaker: Code(s): Z95.0 - Presence of cardiac pacemaker Status: Acute Assessment and Plan: [employer] pacemaker, dual chamber but programmed VVIR rate 75, ventricularly pacing most of the time (5) Chronic anticoagulation: Code(s): Z79.01 - [facility] (current) use of anticoagulants Status: Acute Assessment and Plan: Tolerating Eliquis Additional Plan OK to discharge from cardiac standpoint See discharge instructions Reviewed medications with . Checked with pharmacy regarding contraindication for cialis that he takes for his BPH and his new cardiac medications. No conflicts. Plan discussed with Dr. Shook 1510 11/14/2019 Time Spent With Patient Time with patient: 15 - 25 minutes Subjective Date/time seen: 11/14/19 15:05 Interval history: Follow-up for: Acute on chronic systolic heart failure, cardiomyopathy, atrial fibrillation, pacemaker, chronic anticoagulation Date of service: 11/14/2019 Subjective: Feeling much better. Wants to go home. Denied chest discomfort. Short of breath with exertional activities. Better with oxygen. No lightheadedness. Good appetite. Review of Systems Constitutional: Constitutional: Reports difficulty sleeping, Reports fatigue (Improved), Denies fever(s) and Denies frequent falls Eyes: Eyes: Denies blurry vision ENT: Reports Normal hearing present and Denies epistaxis Cardiovascular: Cardiovascular: Denies chest pain, Denies chest pain with activity, Denies syncope, Denies rapid heart rate, Denies pedal edema, Denies edema, Denies leg edema, Denies lightheadedness, Denies palpitations, Denies dyspnea, Reports dyspnea on exertion and Denies orthopnea Respiratory: Respiratory: Denies chest congestion, Reports cough (Improved), Denies dyspnea, Reports dyspnea on exertion and Reports other (No further hemoptysis) Gastrointestinal: Gastrointestinal: Denies abdominal pain, Denies hematochezia and Denies hematemesis Genitourinary: Genitourinary: Sebastien
--- NOTE | 2019-11-14 20:54 | PM.DS ---
DS: Diagnosis Admitting Diagnosis Admitting Diagnosis: Acute respiratory failure with hypoxia Discharge Diagnosis (1) Acute respiratory failure: Qualifiers: Respiratory failure complication: hypoxia Qualified Code(s): J96.01 - Acute respiratory failure with hypoxia Code(s): J96.00 - Acute respiratory failure, unspecified whether with hypoxia or hypercapnia Status: Acute (2) Congestive heart failure: Qualifiers: Heart failure chronicity: acute on chronic Heart failure type: systolic Qualified Code(s): I50.23 - Acute on chronic systolic (congestive) heart failure Code(s): I50.9 - Heart failure, unspecified Status: Acute (3) Cardiomyopathy: Qualifiers: Cardiomyopathy type: unspecified Qualified Code(s): I42.9 - Cardiomyopathy, unspecified Code(s): I42.9 - Cardiomyopathy, unspecified Status: Acute (4) Pulmonary nodule: Code(s): R91.1 - Solitary pulmonary nodule Status: Acute (5) Elevated troponin: Code(s): R79.89 - Other specified abnormal findings of blood chemistry Status: Acute Assessment and Plan: Troponin levels elevated but decreasing. Was likely result of CHF exacerbation. Per Cardiology, plan for outpatient Lexiscan stress test as he has not had recent ischemia evaluation. (6) COPD (chronic obstructive pulmonary disease): Qualifiers: COPD type: unspecified COPD Qualified Code(s): J44.9 - Chronic obstructive pulmonary disease, unspecified Code(s): J44.9 - Chronic obstructive pulmonary disease, unspecified Status: Acute (7) Hypertension: Qualifiers: Hypertension type: essential hypertension Qualified Code(s): I10 - Essential (primary) hypertension Code(s): I10 - Essential (primary) hypertension Status: Acute (8) Atrial fibrillation: Qualifiers: Atrial fibrillation type: longstanding persistent Qualified Code(s): I48.11 - Longstanding persistent atrial fibrillation Code(s): I48.91 - Unspecified atrial fibrillation Status: Acute (9) Pacemaker: Code(s): Z95.0 - Presence of cardiac pacemaker Status: Acute DS: Summary Hospital Course Reason for hospitalization: Worsening shortness of breath x 2 months. Hospital Course: Date of Service of Discharge: November 14, 2019. History of Present Illness: Patient is a 79-year-old gentle with known systolic congestive heart failure, hypertension, chronic atrial fibrillation, COPD, status post pacemaker placement who presented emergency room after being seen for his regular visit with his primary physician, Dr. Magana. patient has been noticing increasing shortness of breath with walking over the past 2 months. No fever or chills. He does report a cough at night. He did notice fluid in his legs. No headaches or dizziness. 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 No chest pain or chest pressure. No abdominal pain. No nausea, vomiting or diarrhea. While being seen by his primary care provider, he was noted to have oxygen saturation 74% with recommendation to come to the emergency room. In the emergency room, findings were concerning for exacerbation of congestive heart failure. Pulmonology and cardiology were called from the emergency room although only Cardiology was officially consulted. Decision was made for patient to be admitted for further evaluation and treatment. Course in Hospital: Patient was initially admitted to the intermediate care unit where he was seen by Cardiology. Symptoms were felt to be result of exacerbation of his heart failure. He was given IV Lasix which provided good diuresis. Last echocardiogram had been done in July 2019 with EF 35-40% with new echocardiogram Showing EF of 42% and diastolic dysfunction. Decision was made to transition patient from lisinopril to Entresto. Entresto was s
== END 2019-11-14 16:30 | disposition home or self-care (01) | DRG 291 ==
LOC: ANHED 17:05 → ANHIMU 17:20 → ANH3MED 11-14 08:59 → ANHIMU 11-18 12:56
PROVIDERS: Internal Medicine Cardiovascular Disease; Admitting Provider Internal Medicine; Emergency Provider Emergency Medicine; PCP Internal Medicine; Visit Provider Hospitalist
DX: I11.0 Hypertensive heart disease with heart failure (principal); J96.01 Acute respiratory failure with hypoxia; I48.20 Chronic atrial fibrillation, unspecified; I50.23 Acute on chronic systolic (congestive) heart failure; J43.9 Emphysema, unspecified; R91.1 Solitary pulmonary nodule; I42.9 Cardiomyopathy, unspecified; R79.89 Other specified abnormal findings of blood chemistry; N40.0 Benign prostatic hyperplasia without lower urinary tract symptoms; Z66 Do not resuscitate; Z95.0 Presence of cardiac pacemaker; Z79.01 Long term (current) use of anticoagulants; Z87.891 Personal history of nicotine dependence; Z85.72 Personal history of non-Hodgkin lymphomas; Z90.49 Acquired absence of other specified parts of digestive tract
CPT/HCPCS: 36415; 71045; 71046; 71260; 80048; 83735; 83880; 84484; 85025; 85027; 93005; 93306; 94618; 94640; 96374; 96375; 97161; 97165; 99285; A9270; J1100; J1940; J1956; J3475; Q9967

== ENCOUNTER 2020-01-14 15:59 | Observation (INO) | payer MEDICARE, SELFPAY ==
[2020-01-14] VITALS (9 sets, daily range): BP systolic 121–146; BP diastolic 66–79; PULSE 75–90; RESP 16–20; TEMP 36.6–37.1; O2SAT 93–99; BMI 28.2
--- NOTE | ~2020-01-14 | XR_ITS ---
EXAMINATION: XR chest 2V EXAM DATE: 01/14/2020 16:41 INDICATION: Left-sided chest pain, left shoulder pain, dizziness, increased shortness of breath. Hist ory COPD. TECHNIQUE: Frontal and lateral projections of the chest obtained and reviewed. Comparison is made to prior examination from 11/13/2019. FINDINGS: Again there is moderate amount of ill-defined left upper lobe airspace disease. Evidence of a marrow fibrosis better seen on chest CT. The airspace disease most progressed compared to prior st udy, could be some superimposed acute infection on chronic interstitial lung disease. Again there is mild cardiomegaly. There is a dual lead pacemaker/AICD seen with leads projecting over the expected l ocations of the right atrial appendage and right ventricle. There is no pneumothorax suspected. Left pleural blunting, chronic. IMPRESSION: 1. Suspect mild progression left upper lobe airspace disease, chronic or superimposed acute infectio n on chronic interstitial lung disease. 2. Cardiomegaly. Reviewed, dictated and finalized at location A. IMPRESSION: 1. Suspect mild progression left upper lobe airspace disease, chronic or super imposed acute infection on chronic interstitial lung disease. 2. Cardiomegaly.
--- NOTE | 2020-01-14 16:06 | ECG_ITS ---
Measurements Intervals [place] Rate: 75 P: VA: 0 QRS: 109 QRSD: 177 T: -56 QT: 420 QTc: 471 Interpretive Statements ELECTRONIC VENTRICULAR PACEMAKER NO FURTHER INTERPRETATION IS POSSIBLE ATYPICAL ECG Electronically Signed On 01-14-2020 17:01:23 CDT by Alexis Gutiérrez D.O.
--- NOTE | 2020-01-14 16:10 | ED.CHESTPAIN ---
HPI - Chest Pain General Chief Complaint: Chest Pain Stated Complaint: chest pain, sob Time Seen by Provider: 01/14/20 16:08 Source: patient and RN notes reviewed Mode of arrival: ambulatory Limitations: no limitations History of Present Illness HPI narrative: A 80 y/o male presents to the ED with 3/10 pressure like lt CP beginning roughly 3 hours ago. He states that he was on his tractor when he acutely developed lt CP pain, nausea, SOB, and dizziness at 1 PM. He reports that the pain radiates into his lt shoulder and LUE, as well as neck. He notes chronic neck pain, but states the quality of the pain was different. He also notes that he was supposed to have a cardiac cath done by Dr. Shook 2 weeks ago but that it was canceled d/t the COVID-19. He denies any N/V/D, ABD pain, diaphoresis, or back pain. 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) Pain location: left chest Pain radiation: left arm and left shoulder Pain scale (0-10): 3 Quality: other (pressure) Associated symptoms: dyspnea and other (dizziness and chronic neck pain) Risk Factors Coronary artery disease risk factors: smoking history and hypertension Related Data Home Medications Medication Instructions Recorded Confirmed albuterol sulfate 90 mcg/actuation 1 puff INHALATION Q4H PRN 11/07/19 11/10/19 aerosol inhaler apixaban 5 mg tablet 5 mg PO BID 11/07/19 11/10/19 budesonide-formoterol HFA 160 2 puff INHALATION Q12H 11/07/19 11/10/19 mcg-4.5 mcg/actuation aerosol inhaler cyclobenzaprine 10 mg tablet 10 mg PO TID PRN 11/07/19 11/10/19 metoprolol tartrate 50 mg tablet 50 mg PO BID tablet 11/07/19 11/10/19 tadalafil 5 mg tablet 5 mg PO DAILY 11/07/19 11/10/19 cyanocobalamin (vitamin B-12) 1,000 mcg PO DAILY 11/10/19 11/10/19 Allergies Allergy/AdvReac Type Severity Reaction Status Date / Time amiodarone Allergy Unknown Unknown Verified 11/10/19 19:00 fluticasone Allergy Unknown Other Verified 11/10/19 19:00 rosuvastatin Allergy Unknown Muscle Pain Verified 11/10/19 19:00 salmeterol Allergy Unknown Unknown Verified 11/10/19 19:00 cefuroxime AdvReac Unknown Nausea Verified 11/10/19 19:00 NA Allergy Unknown Uncoded 11/10/19 11:32 Review of Systems Review of Systems: Narrative: CONSTITUTIONAL: Denies sweats. CARDIOVASCULAR: Reports lt CP that radiates into his lt shoulder and LUE. RESPIRATORY: Reports dyspnea. GASTROINTESTINAL: Denies abdominal pain, nausea, vomiting, or diarrhea. MUSCULOSKELETAL: Denies back pain. Reports chronic neck pain. NEUROLOGIC: Reports dizziness. All systems reviewed & are unremarkable except as noted in HPI and below PMFSH Past Medical History Medical History Acute on chronic systolic heart failure Atrial fibrillation BPH (benign prostatic hyperplasia) Followed by Dr. 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 Social History Social History Social History: The patient is . He does live with his . He has 2 sons and 1 daughter. Patient is a DNR. His is his power of commercial attorney. He is a previous smoker having smoked up to 3 packs per day but quit 25-30 yea
[2020-01-14] MEDS: ASPIRIN 81 MG CHEWABLE TABLET 324 MG PO (16:12)
[2020-01-14 16:16] LABS: Basophils Absolute Auto 0.1 K/mm3 (0.0-0.1); Basophils Percent Auto 0.6 % (0.2-1.2); Eosinophils Absolute Auto 0.3 K/mm3 (0-0.3); Eosinophils Percent Auto 2.9 % (0-4.4); Hematocrit 46.3 % (42.0-52.0); Hemoglobin 14.8 g/dL (14.0-18.0); Immature Granulocyte Absolute 0.05 K/mm3 (0.00-0.031); Immature Granulocyte Percent A 0.6 % (0-0.5); Lymphocytes Absolute Auto 0.91 K/mm3 (0.9-3.2); Lymphocytes Percent Auto 10.2 % (18.3-44.2); Mean Corpuscular Hemoglobin 31.2 pg (26-34); Mean Corpuscular Volume 97.7 fl (80-100); Mean Platelet Volume 8.8 fl (7.4-10.4); Monocytes Absolute Auto 1.1 K/mm3 (0.1-0.6); Monocytes Percent Auto 11.9 % (2.6-8.5); Neutrophils Absolute Auto 6.6 K/mm3 (1.3-6.7); Neutrophils Percent Auto 73.8 % (45.5-73.1); Platelet Count Result 296 k/mm3 (150-375); Red Blood Count 4.74 M/mm3 (4.6-6.20); Red Cell Distribution Width 13.8 % (11.5-14.5); White Blood Count 8.9 K/mm3 (4.5-10.0)
[2020-01-14] MEDS: MORPHINE SULFATE 2 MG/ML INJ IV PUSH (16:21)
[2020-01-14] MEDS: ONDANSETRON INJ 4 MG/2 ML VIAL IV PUSH (16:21)
[2020-01-14 16:26] LABS: INR 1.2; Prothrombin Time 14.6 Seconds (11.1-14.7)
[2020-01-14 16:27] LABS: Blood Urea Nitrogen 26 mg/dL (9-20); Calcium 8.8 mg/dL (8.4-10.2); Carbon Dioxide 28 mmol/L (22-30); Chloride 99 mmol/L (98-107); Estimated CRCL calculation 50 ml/min; Estimated Glomerular Filt Rate 59; Glucose 92 mg/dL (75-110); Partial Thromboplastin Time 33.2 SECONDS (22.3-36.8); Potassium 4.8 mmol/L (3.4-5.0); Sodium 134 mmol/L (137-145)
[2020-01-14 16:39] LABS: Troponin I < 0.012 ng/mL (0.000-0.034)
--- NOTE | 2020-01-14 18:31 | PC.NURSE ---
This patient, Ziyad Fregoso, was admitted to IMU Room 201-01. Patient/family oriented to hospital policies and general routines including ID bracelet, bed and alarms, visiting hours, pain management, procedures, bathroom and other care routines, personal items, smoking policy, room service/diet, and visiting hours. Valuables list has been completed. Information on how to activate the Rapid Response Team has been discussed. Patient/Family are encouraged to report perceived risks to care and to ask questions if they do not understand what they are told or what they should do.
[2020-01-14 20:08] LABS: Troponin I < 0.012 ng/mL (0.000-0.034)
--- NOTE | 2020-01-14 21:22 | PM.IMHP ---
H&P: HPI History of Present Illness Chief complaint: Angina Narrative: Ziyad Fregoso is a 80 year old male who was supposed to have a cardiac catheterization approximately 2 weeks ago but decided not to undergo it due to the covid 19 virus it has been going around and he has been in quarantine. The patient stated he got on his tractor today and noticed that 1 of the blood was off of his when will which was about 10 ft tall. Patient stated he stood up on the seat of his tractor and replaced the blade on the when male when he started to have a chest pain that he rated 10 out at 10 radiated down his arm into his back patient felt lightheaded dizzy and nauseated. He typically cannot exert himself very much as he can only walk about 10 ft and becomes short of breath due to his respiratory problems. Patient typically wears oxygen at about 2 L per nasal cannula. So far his cardiac enzymes have been negative. Patient is on apixaban. Patient stated that the pain lasted about 3 hours today and started to resolve on his way here. He did not take any aspirin at that time. He did not take anything to help relieve the discomfort. Cardiology group has been consulted. His pain decreased to 3/10 when he was in the emergency room. His EKG was read as electronic ventricular pacemaker. Date of service 01/14/2020 Review of Systems Review of Systems: All systems reviewed & are unremarkable except as noted in HPI and below Constitutional: Constitutional: Reports as per HPI and Reports no additional constitutional complaints Eyes: Eyes: Reports as per HPI and Reports no additional eye complaints ENT: Reports system reviewed and no additional complaints, except as documented and Reports Normal hearing present Cardiovascular: Cardiovascular: Reports no additional cardiovascular complaints Respiratory: Respiratory: Reports no additional respiratory complaints and Reports no additional respiratory complaints Gastrointestinal: Gastrointestinal: Reports as per HPI and Reports no additional gastrointestinal complaints Musculoskeletal: Musculoskeletal: Reports no additional musculoskeletal complaints Integumentary/Breasts: Skin/Breast: Reports system reviewed and no additional complaints, except as docu and Reports as per HPI Neurologic: Reports system reviewed and no additional complaints, except as documented, Reports as per HPI and Reports Normal hearing present Psychiatric: Psychiatric: Reports no additional psychiatric complaints and Reports as per HPI Endocrine: Endocrine: Reports no additional endocrine complaints Hematologic/Lymphatic: Hematologic/Lymphatic: Reports no additional hematologic/lymphatic complaints Allergic/Immunologic: Allergic/Immunologic: Reports no additional allergic/immunologic complaints PMFSH Past Medical History Medical History Acute on chronic systolic heart failure Atrial fibrillation BPH (benign prostatic hyperplasia) Followed by Dr. 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 Social History Social History (Updated 01/14/20 @ 21:29 by Nolvia Naidu NP) Social History: The patient is . He does live with his . He has 2 sons and 1 daughter. Patient
[2020-01-14] MEDS: METOPROLOL TARTRATE 50 MG TAB PO (22:40)
[2020-01-14] MEDS: SACUBITRIL/VALSARTAN 24-26 MG TABLET 1 TAB PO (22:40)
[2020-01-14] MEDS: AZITHROMYCIN 250 MG TABLET 500 MG PO (22:40)
[2020-01-14 22:53] LABS: Troponin I < 0.012 ng/mL (0.000-0.034)
[2020-01-15] VITALS (10 sets, daily range): BP systolic 105–125; BP diastolic 50–65; PULSE 68–89; RESP 18–20; TEMP 36.3–36.8; O2SAT 92–96
[2020-01-15 05:10] LABS: Basophils Percent Auto 0.6 % (0.2-1.2); Eosinophils Absolute Auto 0.3 K/mm3 (0-0.3); Eosinophils Percent Auto 3.7 % (0-4.4); Hematocrit 43.5 % (42.0-52.0); Hemoglobin 14.1 g/dL (14.0-18.0); Immature Granulocyte Absolute 0.05 K/mm3 (0.00-0.031); Immature Granulocyte Percent A 0.7 % (0-0.5); Lymphocytes Absolute Auto 0.71 K/mm3 (0.9-3.2); Lymphocytes Percent Auto 9.8 % (18.3-44.2); Mean Corpuscular HGB Conc 32.4 g/dl (32-36); Mean Corpuscular Hemoglobin 31.1 pg (26-34); Mean Platelet Volume 8.8 fl (7.4-10.4); Monocytes Absolute Auto 1.1 K/mm3 (0.1-0.6); Monocytes Percent Auto 15.5 % (2.6-8.5); Neutrophils Percent Auto 69.7 % (45.5-73.1); Platelet Count Result 274 k/mm3 (150-375); Red Blood Count 4.53 M/mm3 (4.6-6.20); Red Cell Distribution Width 13.7 % (11.5-14.5); White Blood Count 7.2 K/mm3 (4.5-10.0)
[2020-01-15 05:27] LABS: Alanine Aminotransferase 9 U/L (4-50); Albumin Level 3.3 g/dL (3.5-5.1); Alkaline Phosphatase 60 U/L (38-126); Aspartate Amino Transferase 21 U/L (17-59); Bilirubin,Total 0.6 mg/dL (0.2-1.3); Blood Urea Nitrogen 24 mg/dL (9-20); Carbon Dioxide 31 mmol/L (22-30); Chloride 100 mmol/L (98-107); Estimated CRCL calculation 50 ml/min; Estimated Glomerular Filt Rate 59; Glucose 83 mg/dL (75-110); Magnesium 1.9 mg/dL (1.6-2.3); Potassium 4.5 mmol/L (3.4-5.0); Sodium 134 mmol/L (137-145)
[2020-01-15] MEDS: buPROPion HCL XL (24 HR) 150 MG TABCR PO (07:53)
[2020-01-15] MEDS: SACUBITRIL/VALSARTAN 24-26 MG TABLET 1 TAB PO (07:53)
[2020-01-15] MEDS: METOPROLOL TARTRATE 50 MG TAB PO (07:53)
[2020-01-15] MEDS: APIXABAN 5 MG TABLET PO (07:53)
[2020-01-15] MEDS: PANTOPRAZOLE 40 MG TABLET PO (07:53)
[2020-01-15] MEDS: POTASSIUM CHLORIDE 20 MEQ TABLET.ER PO (07:53)
[2020-01-15] MEDS: FUROSEMIDE 40 MG TABLET PO (07:54)
[2020-01-15] MEDS: FINASTERIDE 5 MG TABLET PO (07:54)
[2020-01-15] MEDS: CYANOCOBALAMIN 1,000 MCG TABLET 1000 MCG PO (07:54)
[2020-01-15] MEDS: ASPIRIN 81 MG CHEWABLE TABLET PO (07:54)
--- NOTE | 2020-01-15 10:22 | WPDCN ---
Assessment and Plan Assessment and plan (1) Chest pain: Qualifiers: Chest pain type: unspecified Qualified Code(s): R07.9 - Chest pain, unspecified Code(s): R07.9 - Chest pain, unspecified Status: Acute Assessment and Plan: Patient, with no known CAD, presents with chest pain. It is somewhat atypical with a pleuritic component and some chest wall tenderness, clinically suggesting musculoskeletal discomfort. All his troponins are negative. I doubt this is cardiac pain. Although the said he was bradycardic, his pacemaker seems to be functioning well. If he were hypotensive, that may be related to a vagal event may related to his pain but I do not see any problems with his blood pressure here. The patient is being evaluated for because of his drop in LV function recently. A stress test showed a small mild fixed defect and for completeness sake we recommend an elective cardiac catheterization. He is currently anticoagulated and that increases the risk of adverse events with a cardiac catheterization. He does not appear to be at high risk for an acute infarct and I think it is reasonable for him to be discharged and have any outpatient cardiac catheterization electively. (2) Chronic combined systolic and diastolic CHF (congestive heart failure): Code(s): I50.42 - Chronic combined systolic (congestive) and diastolic (congestive) heart failure Status: Acute Assessment and Plan: Chronic CHF, euvolemic, stable. (3) Atrial fibrillation: Qualifiers: Atrial fibrillation type: longstanding persistent Qualified Code(s): I48.11 - Longstanding persistent atrial fibrillation Code(s): I48.91 - Unspecified atrial fibrillation Status: Acute Assessment and Plan: Persistent atrial fibrillation on anticoagulation with Eliquis. History of AV node ablation and dual-chamber pacemaker. Considering upgrade to a biventricular pacemaker. (4) Cardiomyopathy: Qualifiers: Cardiomyopathy type: unspecified Qualified Code(s): I42.9 - Cardiomyopathy, unspecified Code(s): I42.9 - Cardiomyopathy, unspecified Status: Acute Assessment and Plan: History of cardiomyopathy EF 30-35%, possibly due to chronic right ventricular pacing. (5) COPD (chronic obstructive pulmonary disease): Qualifiers: COPD type: unspecified COPD Qualified Code(s): J44.9 - Chronic obstructive pulmonary disease, unspecified Code(s): J44.9 - Chronic obstructive pulmonary disease, unspecified Status: Acute Assessment and Plan: Severe COPD on home O2 which he apparently does not wear when he is exerting.. HPI Data of Consult Date/Time: 01/15/20 10:22 Requesting Physician: Eder Og MD Primary Care Provider: Rogerio Magana DO Consult Narrative Narrative: Date of service: 01/15/2020 Ziyad Fregoso is a 80 year old male, referred by Dr. Og for our advice and opinion regarding his chest pain in consultation. Mr. jalloh is followed by Dr. Jeffries in our office. He has a history of AFib, pacemaker, cardiomyopathy and CHF. He was hospitalized for CHF in October at which time his EF was 30-35%. A follow-up stress test showed a small mild fixed defect of the basal and mid anteroseptal segments, and ejection fraction 36%. He was to have an elective right and left heart catheterization for further evaluation of possible CAD and then referral for upgrade of his pacemaker to a biventricular device. The cardiac catheterization was cancelled since it was an elective procedure and because of the expected COVID-19 surge. The patient has been having his normal dyspnea on exertion. Apparently goes without his oxygen when he works on his yard, to the dismay of his , and his O2
--- NOTE | 2020-01-15 12:13 | PM.DS ---
DS: Diagnosis Admitting Diagnosis Admitting Diagnosis: Chest pain, unspecified Discharge Diagnosis (1) Chest pain: Qualifiers: Chest pain type: unspecified Qualified Code(s): R07.9 - Chest pain, unspecified Code(s): R07.9 - Chest pain, unspecified Status: Acute Assessment and Plan: So far his troponin is negative. Cardiology has been consulted. Patient was supposed to have a cardiac catheterization 2 weeks ago but did not have it performed at that time because of being on the stay at home order due to covid 19. He no longer has any chest pain. (2) Paroxysmal atrial fibrillation: Code(s): I48.0 - Paroxysmal atrial fibrillation Status: Acute Assessment and Plan: Patient is on apixaban and has a pacemaker. He is also on metoprolol. (3) Chronic anticoagulation: Code(s): Z79.01 - correction (current) use of anticoagulants Status: Acute Assessment and Plan: He is on apixaban (4) COPD (chronic obstructive pulmonary disease): Qualifiers: COPD type: unspecified COPD Qualified Code(s): J44.9 - Chronic obstructive pulmonary disease, unspecified Code(s): J44.9 - Chronic obstructive pulmonary disease, unspecified Status: Acute Assessment and Plan: Continue with inhalers. (5) Congestive heart failure: Qualifiers: Heart failure chronicity: acute on chronic Heart failure type: systolic Qualified Code(s): I50.23 - Acute on chronic systolic (congestive) heart failure Code(s): I50.9 - Heart failure, unspecified Status: Acute Assessment and Plan: Continue with Lasix and metoprolol. He is also on Entresto (6) Hypertension: Qualifiers: Hypertension type: essential hypertension Qualified Code(s): I10 - Essential (primary) hypertension Code(s): I10 - Essential (primary) hypertension Status: Acute Assessment and Plan: Continue with metoprolol (7) BPH (benign prostatic hyperplasia): Code(s): N40.0 - Benign prostatic hyperplasia without lower urinary tract symptoms Status: Chronic Assessment and Plan: Continue with finasteride DS: Summary Hospital Course Reason for hospitalization: Ziyad Fregoso is a 80 year old male who was supposed to have a cardiac catheterization approximately 2 weeks ago but decided not to undergo it due to the covid 19 virus it has been going around and he has been in quarantine. The patient stated he got on his tractor today and noticed that 1 of the blood was off of his when will which was about 10 ft tall. Patient stated he stood up on the seat of his tractor and replaced the blade on the when male when he started to have a chest pain that he rated 10 out at 10 radiated down his arm into his back patient felt lightheaded dizzy and nauseated. He typically cannot exert himself very much as he can only walk about 10 ft and becomes short of breath due to his respiratory problems. Patient typically wears oxygen at about 2 L per nasal cannula. So far his cardiac enzymes have been negative. Patient is on apixaban. Patient stated that the pain lasted about 3 hours today and started to resolve on his way here. He did not take any aspirin at that time. He did not take anything to help relieve the discomfort. Cardiology group has been consulted. His pain decreased to 3/10 when he was in the emergency room. His EKG was read as electronic ventricular pacemaker. Date of service 01/14/2020 Hospital Course: So far his troponin is negative. Cardiology has been consulted. Patient was supposed to have a cardiac catheterization 2 weeks ago but did not have it performed at that time because of being on the stay at home order due to covid 19. He no longer has any chest pain. Patient with history of coronary artery disease and systolic dysfunction patient was seen by senior accounting specialist, a cardiac enzymes are negative and senior accounting specialist does not suspect acute coron
== END 2020-01-15 13:45 | disposition home or self-care (01) ==
LOC: ANHED 17:41 → ANHIMU 17:53
PROVIDERS: Nurse Practitioner; Admitting Provider Family Medicine; Emergency Provider Emergency Medicine; PCP Internal Medicine; Visit Provider Family Medicine
DX: R07.9 Chest pain, unspecified (principal); I48.0 Paroxysmal atrial fibrillation; J44.9 Chronic obstructive pulmonary disease, unspecified; I11.0 Hypertensive heart disease with heart failure; I50.23 Acute on chronic systolic (congestive) heart failure; N40.0 Benign prostatic hyperplasia without lower urinary tract symptoms; I42.9 Cardiomyopathy, unspecified; I25.10 Atherosclerotic heart disease of native coronary artery without angina pectoris; Z85.79 Personal history of other malignant neoplasms of lymphoid, hematopoietic and related tissues; Z92.3 Personal history of irradiation; Z66 Do not resuscitate; Z79.01 Long term (current) use of anticoagulants; Z79.82 Long term (current) use of aspirin; Z79.899 Other long term (current) drug therapy; Z87.891 Personal history of nicotine dependence; Z95.0 Presence of cardiac pacemaker; Z99.81 Dependence on supplemental oxygen
CPT/HCPCS: 36415; 71046; 80048; 80053; 83735; 84443; 84484; 85025; 85610; 85730; 93005; 94640; 96374; 96375; 99285; A9270; G0378; J2270; J2405

== ENCOUNTER → 2020-02-17 08:20 | Day surgery (SDC) | payer MEDICARE, SELFPAY ==
[2020-02-17] VITALS (11 sets, daily range): BP systolic 135–152; BP diastolic 62–79; PULSE 69–80; RESP 16–22; TEMP 36.8; O2SAT 92–97; BMI 29.9
[2020-02-17 09:29] LABS: Basophils Percent Auto 0.5 % (0.2-1.2); Eosinophils Absolute Auto 0.3 K/mm3 (0-0.3); Eosinophils Percent Auto 3.6 % (0-4.4); Hematocrit 45.7 % (42.0-52.0); Hemoglobin 14.8 g/dL (14.0-18.0); Immature Granulocyte Absolute 0.04 K/mm3 (0.00-0.031); Immature Granulocyte Percent A 0.5 % (0-0.5); Lymphocytes Absolute Auto 0.74 K/mm3 (0.9-3.2); Lymphocytes Percent Auto 8.6 % (18.3-44.2); Mean Corpuscular HGB Conc 32.4 g/dl (32-36); Mean Corpuscular Hemoglobin 31.2 pg (26-34); Mean Corpuscular Volume 96.4 fl (80-100); Mean Platelet Volume 8.7 fl (7.4-10.4); Monocytes Absolute Auto 1.1 K/mm3 (0.1-0.6); Monocytes Percent Auto 12.3 % (2.6-8.5); Neutrophils Absolute Auto 6.4 K/mm3 (1.3-6.7); Neutrophils Percent Auto 74.5 % (45.5-73.1); Platelet Count Result 215 k/mm3 (150-375); Red Blood Count 4.74 M/mm3 (4.6-6.20); Red Cell Distribution Width 13.9 % (11.5-14.5); White Blood Count 8.6 K/mm3 (4.5-10.0)
[2020-02-17 09:39] LABS: INR 1.1; Prothrombin Time 13.9 Seconds (11.1-14.7)
[2020-02-17 09:40] LABS: Blood Urea Nitrogen 25 mg/dL (9-20); Calcium 9.1 mg/dL (8.4-10.2); Carbon Dioxide 29 mmol/L (22-30); Chloride 105 mmol/L (98-107); Estimated Glomerular Filt Rate > 60; Glucose 95 mg/dL (75-110); Potassium 4.2 mmol/L (3.4-5.0); Sodium 137 mmol/L (137-145)
--- NOTE | 2020-02-17 10:27 | WPDMODSED ---
Moderate Sedation Note-Pt Data Patient Data Allergies Allergy/AdvReac Type Severity Reaction Status Date / Time amiodarone Allergy Unknown Unknown Verified 01/14/20 18:40 fluticasone Allergy Unknown Other Verified 01/14/20 18:40 rosuvastatin Allergy Unknown Muscle Pain Verified 01/14/20 18:40 salmeterol Allergy Unknown Unknown Verified 01/14/20 18:40 cefuroxime AdvReac Unknown Nausea Verified 01/14/20 18:40 Home Medications Medication Instructions Recorded Confirmed Type albuterol sulfate 90 mcg/actuation 1 puff INHALATION Q4H PRN 11/07/19 02/17/20 History aerosol inhaler apixaban 5 mg tablet 5 mg PO BID 11/07/19 02/17/20 History budesonide-formoterol HFA 160 2 puff INHALATION Q12H 11/07/19 02/17/20 History mcg-4.5 mcg/actuation aerosol inhaler cyclobenzaprine 10 mg tablet 10 mg PO TID PRN 11/07/19 02/17/20 History metoprolol tartrate 50 mg tablet 50 mg PO Q12H tablet 11/07/19 01/14/20 History tadalafil 5 mg tablet 5 mg PO DAILY 11/07/19 01/14/20 History Entresto 1 tablet PO Q12HR #60 tablet 11/14/19 02/17/20 Rx aspirin [Children's Aspirin] 81 mg PO DAILY@0800 #30 tablet 11/14/19 02/17/20 Rx furosemide 40 mg PO DAILY #30 tablet 11/14/19 01/14/20 Rx potassium chloride [Klor-Con M20] 20 meq PO DAILY #30 tablet 11/14/19 01/14/20 Rx esomeprazole magnesium 40 mg 40 mg PO DAILY #90 cap 12/28/19 01/14/20 Rx capsule,delayed release bupropion HCl 150 mg 24 hr tablet, 150 mg PO QAM #90 tablet 12/29/19 02/17/20 Rx extended release finasteride 5 mg PO DAILY 01/14/20 02/17/20 History Current Medications: Active Medications Sodium Chloride (Normal Saline Iv) 500 mls @ 100 mls/hr IV CONT .Q5H ARABELLA Sedation/Anesthesia: No previous sedation/anesthesia problems (including family history). [facility] Past Medical History Medical History (Updated 01/15/20 @ 11:44 by Isabella Jacinto MD) Acute on chronic systolic heart failure Atrial fibrillation BPH (benign prostatic hyperplasia) Followed by Dr. 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 He does live with his . He has 2 sons and 1 daughter. Patient is a DNR. His is his power of attorney law clerk. He is a previous smoker having smoked up to 3 packs per day but quit 25-30 years ago. He does drink occasional beer. 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 Gender identity (if verbalized by the patient): Male Spiritual care concerns: No Agree to blood products: Yes Mod Sed Physical Exam Physical Exam Pre Procedural Exam: Normal: Airway Hours since solid foods: 10 Hours since liquid intake: 10 Internal Medicine - PN: Obj Da Vital Signs Vital Signs: Vital Signs - 24 hr 02/17/20 09:25 Temperature 36.8 C Pulse Rate 75 Respiratory Rate 22 H Blood Pressure 152/79 H Pulse Oximetry 97 Meds/Results Medications: Active Medications Generic Name Dose Route Start Last Admin Trade Name Freq PRN Re
--- NOTE | 2020-02-17 10:48 | PM.IMHP ---
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 Patient has been referred by Dr. stoddard for right and left heart catheterization in the setting of worsening Worsening symptoms of shortness of breath. Review of Systems Constitutional: Constitutional: Denies chills, Denies fatigue, Denies fever(s) and Denies headache(s) Eyes: Eyes: Reports as per HPI, Denies change in vision, Denies loss of vision and Denies eye pain ENT: Reports as per HPI, Reports Normal hearing present, Denies headache(s), Denies lip swelling, Denies epistaxis and Denies sore throat Cardiovascular: Cardiovascular: Reports as per HPI, Reports chest pain, Denies syncope, Denies irregular heart rhythm, Denies lightheadedness and Reports dyspnea Respiratory: Respiratory: Reports as per HPI, Denies cough, Denies dyspnea and Denies wheezing Gastrointestinal: Gastrointestinal: Reports as per HPI, Denies abdominal pain, Denies melena, Denies nausea and Denies vomiting Genitourinary: Genitourinary: Reports as per HPI Musculoskeletal: Musculoskeletal: Reports as per HPI, Denies myalgias, Denies muscle cramps and Denies muscle weakness Integumentary/Breasts: Skin/Breast: Reports as per HPI, Denies pruritus and Denies rash Neurologic: Reports as per HPI, Reports Normal hearing present, Denies behavioral changes, Denies syncope, Denies headache(s) and Denies loss of vision Psychiatric: Psychiatric: Reports as per HPI, Denies anxiety, Denies behavioral changes and Denies depression Endocrine: Endocrine: Reports as per HPI, Denies fatigue, Denies polydipsia and Denies polyuria Hematologic/Lymphatic: Hematologic/Lymphatic: Reports as per HPI, Denies easy bleeding and Denies easy bruising Allergic/Immunologic: Allergic/Immunologic: Reports as per HPI, Denies lip swelling and Denies wheezing [facility] Past Medical History Medical History (Updated 01/15/20 @ 11:44 by Isabella Jacinto MD) Acute on chronic systolic heart failure Atrial fibrillation BPH (benign prostatic hyperplasia) Followed by Dr. 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 He does live with his . He has 2 sons and 1 daughter. Patient is a DNR. His is his power of ip attorney. He is a previous smoker having smoked up to 3 packs per day but quit 25-30 years ago. He does drink occasional beer. 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 Gender identity (if verbalized by the patient): Male Spiritual care concerns: No Agree to blood products: Yes Meds Home Medications and Allergies Home Medications Medication Instructions Recorded Confirmed Type albuterol sulfate 90 mcg/actuation 1 puff INH
--- NOTE | 2020-02-17 12:30 | WPDCARDPROC ---
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 Patient has been referred by Dr. Jeffries for right and left heart catheterization in the setting of worsening Worsening symptoms of shortness of breath. MPI from 12/11/2019 reported LVEF 36%; hypokinesis in the basal anteroseptal and mid anteroseptal segments; small size, [id number] intensity fixed defect in the basal anteroseptal and mid anteroseptal segments. Echocardiogram from 11/12/2019 reported LV systolic function 30-35%, moderate LVH; diastolic dysfunction; biatrial enlargement, moderate aortic regurgitation, moderate to severe MR; moderate TR, RVSP 50 mmHg. Benefits, risks and alternatives of the procedure were discussed with the patient and informed consent was taken prior to the procedure. PROCEDURES PERFORMED: 1. Right heart catheterization with hemodynamic assessment 2. Left heart catheterization- Selective left and right coronary angiogram; left ventriculogram and hemodynamic assessment 3. IFR of intermediate degree stenosis in the mid LAD 4. Selective right common femoral angiogram and deployment of Angio-Seal hemostatic device 5. Moderate sedation-CPT code 27900 MODERATE SEDATION: Midazolam 2 mg; fentanyl 50 mcg; Start time 1053 , Stop time 1224 ; Total [id number] time 91 minutes; Pastor Nicholson RN was trained observer for moderate sedation. ACCESS SITE: Right common femoral artery and vein PROCEDURE NOTE: After obtaining informed consent, patient was brought to catheterization lab and prepped and draped in a usual sterile manner. After local anesthesia with lidocaine, right common femoral artery access was taken with micropuncture. There was difficulty in advancing the wire. Next, right common femoral venous access was taken with followed by insertion of a 7 Azerbaijani sheath. Due to difficulty in getting the access in the right common femoral artery, attempt was made to get the access in the left common femoral artery. Again, there was difficulty in advancing the wire. There was small hematoma, which was reduced with manual pressure. Right heart catheterization was performed using see Cord-Wenceslao catheter. Pressures were measured in the right atrium, right ventricle, pulmonary artery, pulmonary capillary. O2 sats were taken from the right atrium, pulmonary artery; and also O2 sats were taken from the femoral artery after the femoral artery access was taken as described below. After completion of right heart catheterization, another attempt on the access was taken in the right common femoral artery, using micropuncture needle followed by insertion of a 5 Azerbaijani sheath. O2 sats were taken from the right common femoral artery. Next, selective left coronary angiogram was performed using 5 Azerbaij[place] JL4 diagnostic catheter. orthogonal views were taken. There was difficulty in engaging the right coronary artery ostium using 5 Azerbaijani JR4, Juan Diego right catheter. Selective right coronary angiogram was performed using multipurpose catheter. Next, a 5 Azerbaijani pigtail catheter was advanced in the LV cavity and was flushed with normal saline. LV pressure measurement was performed. After this, left ventriculogram was performed. The catheter was flushed again, and gradient across the aortic valve was measured on the pullback of the catheter. the angiographic and IFR findings are described below. FINDINGS: LEFT MAIN CORONARY: The left main coronary artery is a large
--- NOTE | 2020-02-17 16:08 | SUR.PHASEII ---
02/17/20:1545:PATIENT UP TO BEDSIDE RECLINER. RT AND LT GROIN SITE ARE CLEAN AND DRY. NO HEMATOMA OR BLEEDING NOTED. PATIENT IS INSTRUCTED ON WHAT SIGNS AND SYMPTOMS TO LOOK FOR AND WHEN TO CALL THE NURSE. CALL LIGHT AND BELONGINGS ARE WITHIN REACH.
== END | disposition home or self-care (01) ==
PROVIDERS: PCP Internal Medicine; Visit Provider Internal Medicine Cardiovascular Disease
PROC: 4A023N8 Measurement of Cardiac Sampling and Pressure, Bilateral, Percutaneous Approach (ICD-10-PCS; CPT 93453; principal; 2020-02-17 10:00)
PROC: 4A033BC Measurement of Arterial Pressure, Coronary, Percutaneous Approach (ICD-10-PCS; CPT 93571; 2020-02-17 10:00)
DX: I25.10 Atherosclerotic heart disease of native coronary artery without angina pectoris (principal); I34.0 Nonrheumatic mitral (valve) insufficiency; R94.39 Abnormal result of other cardiovascular function study; I11.0 Hypertensive heart disease with heart failure; I50.42 Chronic combined systolic (congestive) and diastolic (congestive) heart failure; I48.11 Longstanding persistent atrial fibrillation; I42.9 Cardiomyopathy, unspecified; R06.02 Shortness of breath; N40.0 Benign prostatic hyperplasia without lower urinary tract symptoms; J44.9 Chronic obstructive pulmonary disease, unspecified; Z95.0 Presence of cardiac pacemaker; Z85.72 Personal history of non-Hodgkin lymphomas; Z92.3 Personal history of irradiation; Z87.891 Personal history of nicotine dependence; Z79.01 Long term (current) use of anticoagulants; Z79.82 Long term (current) use of aspirin
CPT/HCPCS: 36415; 80048; 85025; 85610; 93460; 93571; C1760; C1769; C1887; C1894; G0269; J0583; J1644; J2250; J3010; J7040